=== PATIENT | male | born 1940 | race Caucasian/White ===

== ENCOUNTER 2016-12-01 09:37 | Inpatient (IN) | payer MEDICARE, MEDICAID ==
[~2016-12-01] VITALS: Ht 162.6 cm; Wt 68.9 kg
[2016-12-01] MEDS: TIOTROPIUM INHALER/CAPSULE (SPIRIVA) INH SCH (08:00)
[2016-12-01] MEDS: ADVAIR DISKUS 250/50 INH PWD INH SCH ×2 (09:00→22:01)
[2016-12-01] MEDS ORDERED: MIRALAX *UNIT DOSE* 17GM PACKET PO PRN (10:00)
[2016-12-01] MEDS ORDERED: NITROGLYCERIN 0.4 MG SUBL TABLET SL PRN (10:00)
[2016-12-01] MEDS ORDERED: ALBUTEROL 90 MCG/ACT 8GM HFA INHALER INH PRN (10:00)
[2016-12-01] MEDS ORDERED: ACETAMINOPHEN TAB 650MG DOSE (2X325MG) PO PRN (10:00)
[2016-12-01] MEDS ORDERED: MOM 30ML SUSPENSION UDC PO PRN (10:00)
[2016-12-01 10:45] VITALS: BP 126/60
[2016-12-01] MEDS ORDERED: FLUO20CA8 PO (11:35)
[2016-12-01] MEDS ORDERED: HYDR25T PO (11:35)
[2016-12-01] MEDS ORDERED: PROA1AER INH (11:35)
[2016-12-01] MEDS ORDERED: RANO5TAB PO (11:35)
[2016-12-01] MEDS ORDERED: LYRI150C PO (11:35)
[2016-12-01] MEDS ORDERED: RANI300T PO (11:35)
[2016-12-01] MEDS ORDERED: CLOP75TA2 PO (11:35)
[2016-12-01] MEDS ORDERED: FINA5TAB2 PO (11:35)
[2016-12-01] MEDS ORDERED: MIRA3350 PO (11:35)
[2016-12-01] MEDS ORDERED: NITR4TASL SL (11:35)
[2016-12-01] MEDS ORDERED: FERR325T PO (11:35)
[2016-12-01] MEDS ORDERED: AMLO5TAB2 PO (11:35)
[2016-12-01] MEDS ORDERED: DEXI60CA PO (11:35)
[2016-12-01] MEDS ORDERED: ATOR1TAB18 PO (11:35)
[2016-12-01] MEDS ORDERED: RAMI10CA PO (11:35)
[2016-12-01] MEDS ORDERED: FLOM5CAP PO (11:35)
[2016-12-01] MEDS ORDERED: SPIR1CAP INH (11:35)
[2016-12-01] MEDS ORDERED: OXYC1TAB23 PO (11:35)
[2016-12-01] MEDS ORDERED: COLA100C PO (11:35)
[2016-12-01] MEDS ORDERED: MELA3TAB PO (11:37)
[2016-12-01] MEDS ORDERED: DULO1CAP3 PO (11:38)
[2016-12-01] MEDS ORDERED: SYMB80INH INH (11:39)
[2016-12-01] MEDS ORDERED: ACET-654 PO (11:42)
[2016-12-01] MEDS ORDERED: ALPR0.25 PO (11:44)
--- NOTE | 2016-12-01 13:04 | HPEPDOC ---
Commercial Sales Manager Note ADMISSION H&P + LINA DATE OF ADMISSION: 12/01/16 DATE OF SERVICE: 12/01/16 IDENTIFICATION STATEMENT: Patient is a 76-year-old gentleman with acute right internal capsule infarct/left hemiparesis admitted for comprehensive integrated inpatient rehabilitation. Thereve been no significant changes in the patients condition since the preadmission screening. HISTORY OF PRESENT ILLNESS: Patient is a 76-year-old right hand dominant gentleman with a history of multiple medical comorbidities including hypertension and prior stroke who presented to his [facility] emergency department 11/25/16 with several hours of dysarthria and left hemiparesis. CT of the head was negative for acute findings. The patient was transferred to [facility] for higher level of care. At [facility] he underwent an MRI of the brain which showed an acute infarct in the right internal capsule, posterior [place]/bañuelos radiata. He underwent treatments including Plavix, statin therapy and antihypertensive treatment to maintain systolic blood pressure between 140 and 1 80 mmHg. Due to decline in the patients baseline functional status and need for continued medical care, recommendation was for acute rehabilitation. On 12/01/2016 the patient was deemed stable for discharge to [facility] inpatient rehabilitation unit. On evaluation today, the patient reports improved strength in his left lower limb, but on no improvement in his left upper limb weakness. He also reports tingling on the lateral aspect of his mouth and continued weakness on the left side of his mouth. He reports an exacerbation of his chronic low back pain citing that laying in bed increases his pain, sitting up in a chair alleviates it, describes it as achy with intermittent sharp pains. He denies any radiating pain to the bilateral lower limbs. He reports shortness of breath which is been present for proximally half a year, but denies any productive cough. He has not moved his bowels in about a week. He denies any dysuria. He reports intermittent anxiety attacks. PAST MEDICAL HISTORY: Hypertension Hyperlipidemia Coronary artery disease status post multiple stents Gastroesophageal reflux disease Esophagitis Gastritis Hiatal hernia Schatzki ring Colonic polyps Prior stroke affecting left side but without significant residual ?BPH PAST SURGICAL HISTORY: Coronary artery stents (2-3 times, patient unsure of which vessel stented or years of stenting) Appendectomy Right shoulder surgery Hernia repair ALLERGIES: aspirin leads to hives; NSAIDs MEDICATIONS: Albuterol inhaler 2 puffs every 6 hours Altace 10 mg by mouth daily Norvasc 5 mg by mouth daily BreoEllipta one puff daily Plavix 75 mg daily Dexilant 60 mg daily Ferrous fumarate 324 mg daily Proscar 5 mg daily Atarax 25 mg by mouth daily as needed Nitrostat 0.4 mg sublingual every 5 minutes as needed Percocet 1 tab every 4 hours as needed Lyrica 50 mg daily Ranexa 500 mg twice a day Zocor 20 mg at bedtime Flomax 0.4 mg daily Spiriva 18 g inhaled daily Zantac 300 mg at night FAMILY HISTORY: Father at the age of 65 brain aneurysm, mother asked away in her 90s and of old age. SOCIAL HISTORY: Patient is and lives with his in a two-story home, but there is a first floor set up. There are 2-3 steps to enter the house. He reports of history of smoking about 5 cigarettes per day for approximately 40 years and quit in 1995, but approximate one month ago restarted smoking. He reports occasional alcohol, usually beer. He denies any illicit drug use, past or present. Review of Systems: General: no chills, +fatigue, no weight changes. Eyes: no change of vision, + bifocals. Ears, Nose & Throat: no sore throat, +decreased hearing, no nasal discharge. Cardiovascular: no chest pain, claudication, edema , syncopal episodes. Pul: +SOB last year, no productive cough. GI: + constipation, no abdominal pain, N/V, BRBPR/tarry stools, incontinence. Genitourinary: no dysuria. Musculoskeletal: +chronic low back pain exacerbated by being in bed; no neck/joint pain, no muscle pain. Neurological: Positive tingling left internal cheek, no paresthesias or numbness elsewhere., no tremors , seizures, AGUILERA. Hematological: No bleeding disorders. Skin: no rashes. Psychiatric: Episodic anxiety since being in the hospital, no depression, behavioral issues. VITAL SIGNS: 96.6F, pulse 54, respiratory rate 18, blood pressure 126/60, 99% saturation on room air PHYSICAL EXAMINATION: GENERAL: Well nourished, well developed, sitting up in bed, no acute distress. HEENT: Normocephalic, atraumatic. Left facial droop, slight. No jugular venous distention (JVD). PERRL, EOMI CARDIOVASCULAR: S1, S2, regular rate. No lower limb edema or calf tenderness bilaterally LUNGS: Decreased breath sounds throughout, clear to auscultation, no wheezing rhonchi or rales. ABDOMEN: Soft, nontender, nondistended. Positive normoactive bowel sounds throughout. MUSCULOSKELETAL: Osteoarthritic changes bilateral hands and DIP and PIP joints. Manual muscle testin/5 strength right upper and lower limb in all major muscle groups. 4/5 left hip flexors, 5/5 remainder of the left lower limb in all major muscle groups. 1/5 left shoulder shrug, 0 forward/5 left shoulder abduction, forward flexion, elbow flexion, elbow extension, wrist extension/ flexion, stock taker and finger extension. Sensation: Intact to soft touch bilateral upper and lower limbs. Deep tendon reflexes: Unable to elicit patellar bilaterally, trace biceps bilaterally. Finger to nose on the right within normal limits. NEUROLOGICAL: Alert and oriented x 3. Answers all questions appropriately. Speech intact, no dysarthria. Able to follow commands without difficulty and memory seems intact. SKIN: No skin breakdown. LABORATORY DATA: None available. IMAGING: CT of the head without contrast 11/25/2016: Normal brain without evidence of any acute ischemic or hemorrhagic stroke. CTA of the head and neck on 11/25/2016: No attenuation in the right internal capsule/posterior [place] is consistent with infarct, probably recent. Hypoattenuation in the thalamus is likely c s s representative chronic infarct. 2 focal areas of narrowing is noted in the P1 segment of the right posterior cerebral artery. No evidence of hemodynamically significant flow stenosis. No evidence of aneurysm or AV malformation. No evidence of acute intracranial hemorrhage. MRI of the brain 11/25/2016: Acute infarct is noted in the right internal capsule, posterior [place]/bañuelos radiata. 2-D echocardiogram November 2016: Negative saline bubble study. Estimated left ventricular ejection fraction greater than 70%. Grossly normal right ventricular size and systolic function. There is mild aortic stenosis. Mild to moderate mitral regurgitation. FUNCTIONAL STATUS, Premorbid: Independent with ADLs and ambulation. ASSESSMENT AND PLAN: 1. Right internal capsule, posterior [place] and bañuelos radiata acute infarct with resultant left hemiparesis, gait abnormality and dysfunctional ADLs: Will maintain patient on Plavix and statin. Blood pressure control to maintain systolic blood pressure less than 140. Will continue Prozac for 90 days to support recovery as evidence by FLAME trial. Patient will undergo thorough physical and occupational therapy evaluations followed by daily intensive therapy. Will start NMES the left upper limb. Rehabilitation nursing for bladder , bowel and medication management. 2. Constipation: Will provide bowel regimen to include Colace and senna scheduled along along with milk of magnesia and MiraLAX on an as-needed basis. Adjustments as indicated. 3. COPD: Will maintain patient on Proventil and Spiriva. Phillips acute Advair since Breo is not on our formulary. 4. Anxiety: Will maintain patient on Atarax when necessary 5. Gastritis/reflux: Will maintain patient on PPI along with H2 navya. 6. Pain: Percocet on an as-needed basis. Continue Lyrica daily. 7. Diet/nutrition: Will obtain a prealbumin with morning labs. Low cholesterol diet. Nutritional supplements as indicated. POST ADMISSION PHYSICIAN EVALUATION: On evaluation of the patient today there' ve been no significant medical issues or functional changes as compared to those noted in the preadmission screening document. This patient's inpatient rehabilitation remains necessary in light of the above conditions. The patient' s medical condition requires specialized care with physicians specially trained in physical medicine rehabilitation. The patient is capable motivated to participate in a minimum of 3 hours of therapy daily, 5 days minimum per week, and requires intensive inpatient rehabilitation to improve their functional status so that they can be safely to discharge back to their home. PROGNOSIS: Good ESTIMATED LENGTH OF STAY: 7-10 days. / Vital Signs Vital Sign - Last 24 Hours 12/01/16 10:45 Temp 96.6 Pulse 54 Resp 18 B/P 126/60 Pulse Ox 99 O2 Delivery Room Air Home Medications Scheduled (Dexilant) 60 Mg Cap 60 MG PO DAILY (Reported) Amlodipine Besylate (Amlodipine Besylate) 5 Mg Tab 5 MG PO DAILY (Reported) Atorvastatin Calcium (Atorvastatin Calcium) 80 Mg Tab 80 MG PO QHS (Reported) SEE COMMENTS Budesonide/Formoterol (Symbicort 80-4.5 Mcg/Act) 60 Puff/Inhaler Aers 2 PUFF INH BID (Reported) Clopidogrel Bisulfate (Clopidogrel) 75 Mg Tab 75 MG PO DAILY (Reported) Duloxetine Hcl (Duloxetine HCl) 60 Mg Cap 60 MG PO DAILY (Reported) HOME MED, TOLD TO D/C AND GO ON FLUOXETINE Ferrous Sulfate (Ferrous Sulfate) 325 Mg Tab 325 MG PO DAILY (Reported) Finasteride (Finasteride) 5 Mg Tab 5 MG PO DAILY (Reported) Fluoxetine Hcl (Fluoxetine) 20 Mg Cap 20 MG PO DAILY (Reported) SEE COMMENTS Pregabalin (Lyrica) 150 Mg Cap 150 MG PO DAILY (Reported) Ramipril (Ramipril) 10 Mg Cap 10 MG PO DAILY (Reported) Ranitidine HCl (Ranitidine HCl) 300 Mg Tab 1 TAB PO QHS (Reported) Ranolazine (Ranexa) 500 Mg Ryan 500 MG PO BID (Reported) Tamsulosin Hydrochloride (Flomax) 0.4 Mg Cap 1 CAP PO DAILY (Reported) once daily 1/2 hour following the same meal each day Tiotropium [place] Monohydrate (Spiriva Handihaler) 18 Mcg Cap 1 INHALATION INH DAILY (Reported) Scheduled PRN Acetaminophen (Acetaminophen) 325 Mg Tab 650 MG PO Q6H PRN PRN PAIN (Reported) Albuterol Sulfate (Proair Hfa) 108 Mcg/Act Aer 2 PUFF INH QID PRN PRN SHORTNESS OF BREATH (Reported) Alprazolam (Alprazolam) 0.25 Mg Tab 0.25 MG PO QHS PRN PRN ANXIETY (Reported) Docusate Sodium (Colace) 100 Mg Cap 100 MG PO BID PRN PRN CONSTIPATION (Reported ) Hydroxyzine HCl (Hydroxyzine HCl) 25 Mg Tab 25 MG PO DAILY PRN PRN ITCHING ( Reported) Melatonin (Melatonin) 3 Mg Tab 3 MG PO QHS PRN PRN SLEEP (Reported) Nitroglycerin (Nitrostat) 0.4 Mg Subl 0.4 MG SL Q5MP PRN PRN CHEST PAIN ( Reported) Oxycodone/Acetaminophen (Oxycodone/Acetaminophen 5-325 mg) 1 Tab Tab 1 TAB PO Q4H PRN PRN PAIN (Reported) Polyethylene Glycol (Miralax) 1 Pow Pow 17 GM PO DAILY PRN PRN CONSTIPATION ( Reported) dilute in 8 ounces of water or juice Allergies Coded Allergies: Aspirin (Verified Allergy, Unknown, 01/09/13) NSAIDs (Verified Allergy, Unknown, 01/09/13) ERROL ACEVEDO MD Dec 01, 2016 13:04
[2016-12-01] MEDS: PANTOPRAZOLE 40MG TAB (PROTONIX) PO SCH (13:08)
[2016-12-01] MEDS: FERROUS GLUCONATE 324 MG TAB PO SCH (13:08)
[2016-12-01] MEDS: amLODIPine 5 MG TAB PO SCH (13:09)
[2016-12-01] MEDS: FLUoxetine 20 MG CAP PO SCH (13:09)
[2016-12-01 14:00] VITALS: BP 134/64
[2016-12-01 20:00] VITALS: BP 155/67
[2016-12-01] MEDS: FAMOTIDINE 20 MG TAB PO SCH (20:06)
[2016-12-01] MEDS: DOCUSATE SODIUM 100 MG CAP PO SCH (20:06)
[2016-12-01] MEDS: RANOLAZINE 500 MG ER TAB PO SCH (20:06)
[2016-12-01] MEDS: SENNA 8.6 MG TAB (SENOKOT) PO SCH (20:06)
[2016-12-01] MEDS: SIMVASTATIN 20 MG TAB PO SCH (20:06)
[2016-12-01] MEDS: PERCOCET 5MG/325MG TAB PO PRN (20:07)
[2016-12-01] MEDS: hydrOXYzine 25 MG TAB PO PRN (20:15)
[2016-12-02 06:00] VITALS: BP 138/63
[2016-12-02 06:53] LABS: MEAN CORPUSCULAR HEMOGLOBIN 27.6 pg (27.0-33.0); MEAN CORPUSCULAR HGB CONC 32.7 g/dl (32.0-36.5); MEAN CORPUSCULAR VOLUME 84.3 fl (80.0-96.0)
[2016-12-02 07:14] LABS: ANION GAP 6 MEQ/L (8-16); BLOOD UREA NITROGEN 19 MG/DL (7-18); CALCIUM LEVEL 8.3 MG/DL (8.8-10.2); CARBON DIOXIDE LEVEL 28 MEQ/L (21-32); CHLORIDE LEVEL 105 MEQ/L (98-107); CREATININE FOR GFR 0.98 MG/DL (0.70-1.30); GLOMERULAR FILTRATION RATE > 60.0 (>42); GLUCOSE, FASTING 95 MG/DL (83-110); POTASSIUM SERUM 4.2 MEQ/L (3.5-5.1); SODIUM LEVEL 139 MEQ/L (136-145)
[2016-12-02] MEDS: PERCOCET 5MG/325MG TAB PO PRN ×2 (07:20→23:13)
[2016-12-02] MEDS: TIOTROPIUM INHALER/CAPSULE (SPIRIVA) INH SCH (08:00)
[2016-12-02] MEDS: ADVAIR DISKUS 250/50 INH PWD INH SCH ×2 (08:03→20:08)
[2016-12-02] MEDS: TAMSULOSIN 0.4 MG CAP PO SCH (08:56)
[2016-12-02] MEDS: PANTOPRAZOLE 40MG TAB (PROTONIX) PO SCH (08:56)
[2016-12-02] MEDS: DOCUSATE SODIUM 100 MG CAP PO SCH ×2 (08:56→20:14)
[2016-12-02] MEDS: FERROUS GLUCONATE 324 MG TAB PO SCH (08:56)
[2016-12-02] MEDS: CLOPIDOGREL 75 MG TAB PO SCH (08:56)
[2016-12-02] MEDS: FLUoxetine 20 MG CAP PO SCH (08:56)
[2016-12-02] MEDS: RANOLAZINE 500 MG ER TAB PO SCH ×2 (08:57→20:14)
[2016-12-02] MEDS: FINASTERIDE 5 MG TAB PO SCH (08:57)
[2016-12-02] MEDS: PREGABALIN 75 MG CAP(LYRICA) PO SCH (08:57)
[2016-12-02] MEDS: amLODIPine 5 MG TAB PO SCH (08:57)
[2016-12-02] MEDS: RAMIPRIL 5 MG CAP PO SCH (08:58)
--- NOTE | 2016-12-02 09:56 | IPNPDOC ---
Audio Visual Tech Progress Note PROGRESS NOTE DATE OF ADMISSION: 12/01/16 DATE OF SERVICE: 12/02/16 IDENTIFICATION STATEMENT: Patient is a 76-year-old gentleman with acute right internal capsule infarct/left hemiparesis admitted for comprehensive integrated inpatient rehabilitation. PAST MEDICAL HISTORY: Hypertension Hyperlipidemia Coronary artery disease status post multiple stents Gastroesophageal reflux disease Esophagitis Gastritis Hiatal hernia Schatzki ring Colonic polyps Prior stroke affecting left side but without significant residual ?BPH PAST SURGICAL HISTORY: Coronary artery stents (2-3 times, patient unsure of which vessel stented or years of stenting) Appendectomy Right shoulder surgery Hernia repair ALLERGIES: aspirin leads to hives; NSAIDs MEDICATIONS: Altace 10 mg by mouth daily Norvasc 5 mg by mouth daily Plavix 75 mg daily Protonix 40mg daily Ferrous gluconate 324 mg daily Proscar 5 mg daily Atarax 25 mg by mouth daily as needed Nitrostat 0.4 mg sublingual every 5 minutes as needed Percocet 1 tab every 4 hours as needed Lyrica 150 mg daily Ranexa 500 mg twice a day Zocor 20 mg at bedtime Flomax 0.4 mg daily Spiriva 18 g inhaled daily Advair 1 puf bid Albuterol inhaler 2 puffs every 6 hours Pepcid 40 mg at night SUBJECTIVE: Patient states wasnt able to sleep last night, just anxious, Atarax helped. Also had leg cramps. Thinks from working hard yesterday with therapists. Denies any CP, increased SOB, N/V, C/D,lightheadedness, AGUILERA or new weakness. VITAL SIGNS: 97.0F, pulse 50, respiratory rate 18, blood pressure 138/63, 96% saturation on room air PHYSICAL EXAMINATION: GENERAL: Well nourished, well developed, sitting up in WC, no acute distress. HEENT: Normocephalic, atraumatic. Left facial droop, slight(unchanged). PERRL, EOMI CARDIOVASCULAR: S1, S2, regular rate. No lower limb edema or calf tenderness bilaterally LUNGS: Decreased breath sounds throughout, clear to auscultation, no wheezing rhonchi or rales. ABDOMEN: Soft, nontender, nondistended. Positive normoactive bowel sounds throughout. MUSCULOSKELETAL: Osteoarthritic changes bilateral hands and DIP and PIP joints. Manual muscle testin/5 strength right upper and lower limb in all major muscle groups. 4/5 left hip flexors, 5/5 remainder of the left lower limb in all major muscle groups. 1/5 left shoulder shrug, 0/5 left shoulder forward flexion, left shoulder abduction, elbow flexion, elbow extension, wrist extension/flexion, reliability technicians and finger extension. NEUROLOGICAL: Alert and oriented x 3. Answers all questions appropriately. Speech intact, no dysarthria. Able to follow commands without difficulty and memory seems intact. SKIN: No skin breakdown. LABORATORY DATA: 12/02/16: reviewed, see below IMAGING: CT of the head without contrast 11/25/2016: Normal brain without evidence of any acute ischemic or hemorrhagic stroke. CTA of the head and neck on 11/25/2016: No attenuation in the right internal capsule/posterior [place] is consistent with infarct, probably recent. Hypoattenuation in the thalamus is likely livestock sales representative chronic infarct. 2 focal areas of narrowing is noted in the P1 segment of the right posterior cerebral artery. No evidence of hemodynamically significant flow stenosis. No evidence of aneurysm or AV malformation. No evidence of acute intracranial hemorrhage. MRI of the brain 11/25/2016: Acute infarct is noted in the right internal capsule, posterior [place]/bañuelos radiata. 2-D echocardiogram November 2016: Negative saline bubble study. Estimated left ventricular ejection fraction greater than 70%. Grossly normal right ventricular size and systolic function. There is mild aortic stenosis. Mild to moderate mitral regurgitation. FUNCTIONAL STATUS, Premorbid: Independent with ADLs and ambulation. ASSESSMENT AND PLAN: 1. Right internal capsule, acute infacte posterior [place] and bañuelos radiata with resultant left hemiparesis, gait abnormality and dysfunctional ADLs: Maintain Plavix and statin. Blood pressure control to maintain systolic blood pressure less than 140. Continue Prozac for 90 days to support recovery as evidence by FLAME trial. Continue daily physical and occupational therapy. NMES the left upper limb. Rehabilitation nursing for bladder, bowel and medication management. 2. Constipation: Resolved. Continue bowel regimen to include Colace and senna scheduled along with milk of magnesia and MiraLAX on an as-needed basis. 3. COPD: Maintain Proventil , Spiriva and Advair [Breo is not on our formulary] . 4. Anxiety: Continue Atarax when necessary 5. Gastritis/reflux: Continue PPI along with H2 navya. 6. Pain: Percocet on an as-needed basis. Continue Lyrica daily. Added Flexeril prn for spasms. 7. Diet/nutrition: Prealbumin wnl. Low cholesterol diet. / Vital Signs Vital Sign - Last 24 Hours 12/01/16 12/01/16 12/01/16 12/01/16 10:45 13:09 14:00 20:00 Temp 96.6 96.4 96.9 Pulse 54 54 58 56 Resp 18 18 18 B/P 126/60 126/60 134/64 155/67 Pulse Ox 99 97 95 O2 Delivery Room Air Room Air Room Air 12/01/16 12/01/16 12/02/16 12/02/16 20:00 20:07 06:00 07:20 Temp 97.0 Pulse 50 Resp 18 20 18 B/P 138/63 Pulse Ox 96 O2 Delivery Room Air Room Air 12/02/16 12/02/16 12/02/16 12/02/16 07:58 08:57 08:58 09:00 Pulse 50 Resp 18 B/P 138/63 138/63 O2 Delivery Room Air Laboratory Data CBC/BMP Laboratory Tests 12/02/16 06:33 Calcium Level 8.3 L, Red Blood Count 4.37, Mean Corpuscular Volume 84.3, Mean Corpuscular Hemoglobin 27.6, Mean Corpuscular Hemoglobin Concent 32.7, Red Cell Distribution Width 14.0 Labs 24H Laboratory Tests 2 12/02/16 06:33: Anion Gap 6L, Blood Urea Nitrogen 19H, Creatinine 0.98, Sodium Level 139, Potassium Level 4.2, Chloride Level 105, Carbon Dioxide Level 28, Calcium Level 8.3L, Glomerular Filtration Rate > 60.0, Prealbumin 35.8 Allergies Allergies: Coded Allergies: Aspirin (Verified Allergy, Unknown, 01/09/13) NSAIDs (Verified Allergy, Unknown, 01/09/13) Current Medications Current Medications Current Medications Acetaminophen (Tylenol Tab) 650 mg Q4HP PRN PO MILD PAIN (PS 1-4); Start at 10:00; Stop 12/31/16 at 09:59 Albuterol Sulfate (Proventil, Ventolin Hfa) 2 puff Q6HP PRN INH SHORTNESS OF BREATH; Start 12/01/16 at 10:00; Stop 12/31/16 at 09:59 Amlodipine Besylate (Norvasc) 5 mg DAILY PO Last administered on 12/02/16 08: 57; Start 12/01/16 at 09:00; Stop 12/31/16 at 08:59 Clopidogrel Bisulfate (PLAVix) 75 mg DAILY PO Last administered on 12/02/16 08 :56; Start 12/02/16 at 09:00; Stop 01/01/17 at 08:59 Cyclobenzaprine HCl (Flexeril) 10 mg Q8HP PRN PO SPASMS; Start 12/02/16 at 09: 45; Stop 01/01/17 at 09:44 Docusate Sodium (Colace) 100 mg BID PO Last administered on 12/02/16 08:56; Start 12/01/16 at 21:00; Stop 12/31/16 at 20:59 Famotidine (Pepcid) 40 mg QHS PO Last administered on 12/01/16 20:06; Start at 21:00; Stop 12/31/16 at 20:59 Ferrous Gluconate (Fergon) 324 mg DAILY PO Last administered on 12/02/16 08:56 ; Start 12/01/16 at 09:00; Stop 12/31/16 at 08:59 Finasteride (Proscar) 5 mg DAILY PO Last administered on 12/02/16 08:57; Start 12/02/16 at 09:00; Stop 01/01/17 at 08:59 Fluoxetine HCl (PROzac) 20 mg DAILY PO Last administered on 12/02/16 08:56; Start 12/01/16 at 09:00; Stop 12/31/16 at 08:59 Home Med (Med Rec Complete!) ASDIRECTED XX ; Start 12/01/16 at 11:45; Stop at 11:57; Status DC Hydroxyzine HCl (Atarax) 25 mg DAILYPRN PRN PO ANXIETY or INSOMNIA Last administered on 12/01/16 20:15; Start 12/01/16 at 10:00 Magnesium Hydroxide (Milk Of Magnesia) 30 ml DAILYPRN PRN PO CONSTIPATION Last administered on 12/01/16 13:08; Start 12/01/16 at 10:00; Stop 12/31/16 at 09:59 Nitroglycerin (Nitrostat (1/ 150)) 0.4 mg Q5MP PRN SL CHEST PAIN; Start at 10:00; Stop 12/31/16 at 09:59 Oxycodone/ Acetaminophen (Percocet 5mg/ 325mg Tablet) 1 tab Q4HP PRN PO MODERATE/SEVERE PAIN (PS 5-10) Last administered on 12/02/16 07:20; Start 12/01 at 10:00; Stop 12/08/16 at 09:59 Pantoprazole Sodium (Protonix) 40 mg DAILY PO Last administered on 12/02/16 08 :56; Start 12/01/16 at 09:00; Stop 12/31/16 at 08:59 Polyethylene Glycol (Miralax) 1 pkt DAILY PRN PO CONSTIPATION; Start 12/01/16 at 10:00; Stop 12/31/16 at 09:59 Pregabalin (Lyrica) 150 mg DAILY PO Last administered on 12/02/16 08:57; Start 12/02/16 at 09:00; Stop 12/09/16 at 08:59 Ramipril (Altace) 10 mg DAILY PO Last administered on 12/02/16 08:58; Start at 09:00; Stop 01/01/17 at 08:59 Ranolazine (Ranexa) 500 mg BID PO Last administered on 12/02/16 08:57; Start 12/01/16 at 21:00; Stop 12/31/16 at 20:59 Salmeterol Xinafoate/ Fluticasone (Advair Diskus 250/50) 1 puff BID INH Last administered on 12/01/16 22:01; Start 12/01/16 at 09:00; Stop 12/31/16 at 08:59 Senna (Senokot) 1 tab QHS PO Last administered on 12/01/16 20:06; Start at 21:00; Stop 12/31/16 at 20:59 Simvastatin (Zocor) 20 mg QHS PO Last administered on 12/01/16 20:06; Start at 21:00; Stop 12/31/16 at 20:59 Tamsulosin HCl (Flomax) 0.4 mg DAILY PO Last administered on 2/23/17at 08:56; Start 12/02/16 at 09:00; Stop 01/01/17 at 08:59 Tiotropium [place] (Spiriva Handihaler) 1 inhalation DAILY@08 INH ; Start at 08:00; Stop 12/31/16 at 07:59 ERROL ACEVEDO MD Dec 02, 2016 09:56
[2016-12-02 14:00] VITALS: BP 122/62
[2016-12-02 15:50] LABS: PERCENT SATURATION 16.5 % (19.7-37.4); TOTAL IRON BINDING CAPACITY 345 UG/DL (250-450)
[2016-12-02 20:00] VITALS: BP 134/72
[2016-12-02] MEDS: CYCLOBENZAPRINE 10 MG TAB PO PRN (20:14)
[2016-12-02] MEDS: SENNA 8.6 MG TAB (SENOKOT) PO SCH (20:14)
[2016-12-02] MEDS: SIMVASTATIN 20 MG TAB PO SCH (20:14)
[2016-12-02] MEDS: FAMOTIDINE 20 MG TAB PO SCH (20:14)
[2016-12-03 06:00] VITALS: BP 149/72
[2016-12-03] MEDS: ADVAIR DISKUS 250/50 INH PWD INH SCH ×2 (08:13→19:54)
[2016-12-03] MEDS: TIOTROPIUM INHALER/CAPSULE (SPIRIVA) INH SCH (08:13)
[2016-12-03] MEDS: RAMIPRIL 5 MG CAP PO SCH (08:16)
[2016-12-03] MEDS: CLOPIDOGREL 75 MG TAB PO SCH (08:16)
[2016-12-03] MEDS: PANTOPRAZOLE 40MG TAB (PROTONIX) PO SCH (08:16)
[2016-12-03] MEDS: DOCUSATE SODIUM 100 MG CAP PO SCH ×2 (08:16→20:59)
[2016-12-03] MEDS: TAMSULOSIN 0.4 MG CAP PO SCH (08:16)
[2016-12-03] MEDS: FLUoxetine 20 MG CAP PO SCH (08:16)
[2016-12-03] MEDS: amLODIPine 5 MG TAB PO SCH (08:17)
[2016-12-03] MEDS: RANOLAZINE 500 MG ER TAB PO SCH ×2 (08:17→20:59)
[2016-12-03] MEDS: FERROUS GLUCONATE 324 MG TAB PO SCH ×2 (08:17→21:00)
[2016-12-03] MEDS: PREGABALIN 75 MG CAP(LYRICA) PO SCH (08:17)
[2016-12-03] MEDS: FINASTERIDE 5 MG TAB PO SCH (08:17)
--- NOTE | 2016-12-03 12:05 | IPNPDOC ---
Podiatric Medicine Doctor Progress Note PROGRESS NOTE DATE OF ADMISSION: 12/01/16 DATE OF SERVICE: 12/03/16 IDENTIFICATION STATEMENT: Patient is a 76-year-old gentleman with acute right internal capsule infarct/left hemiparesis admitted for comprehensive integrated inpatient rehabilitation. PAST MEDICAL HISTORY: Hypertension Hyperlipidemia Coronary artery disease status post multiple stents Gastroesophageal reflux disease Esophagitis Gastritis Hiatal hernia Schatzki ring Colonic polyps Prior stroke affecting left side but without significant residual ?BPH PAST SURGICAL HISTORY: Coronary artery stents (2-3 times, patient unsure of which vessel stented or years of stenting) Appendectomy Right shoulder surgery Hernia repair ALLERGIES: aspirin leads to hives; NSAIDs MEDICATIONS: Altace 10 mg by mouth daily Norvasc 5 mg by mouth daily Plavix 75 mg daily Protonix 40mg daily Ferrous gluconate 324 mg daily Proscar 5 mg daily Atarax 25 mg by mouth daily as needed Nitrostat 0.4 mg sublingual every 5 minutes as needed Percocet 1 tab every 4 hours as needed Lyrica 150 mg daily Ranexa 500 mg twice a day Zocor 20 mg at bedtime Flomax 0.4 mg daily Spiriva 18 g inhaled daily Advair 1 puf bid Albuterol inhaler 2 puffs every 6 hours Pepcid 40 mg at night SUBJECTIVE: Patient w/o complaints. Slept ok. Flexeril helps. Denies any CP, increased SOB, N/V, C/D,lightheadedness, AGUILERA or new weakness. VITAL SIGNS: 97.2F, pulse 58, respiratory rate 18, blood pressure 120/58, 96% saturation on room air PHYSICAL EXAMINATION: GENERAL: Well nourished, well developed, standing up in parallel bars, no acute distress. HEENT: Normocephalic, atraumatic. Left facial droop, slight (unchanged). PERRL, EOMI CARDIOVASCULAR: S1, S2, regular rate. No lower limb edema or calf tenderness bilaterally LUNGS: Decreased breath sounds throughout, clear to auscultation, no wheezing rhonchi or rales. ABDOMEN: Soft, nontender, nondistended. Positive normoactive bowel sounds throughout. MUSCULOSKELETAL: Osteoarthritic changes bilateral hands and DIP and PIP joints. Manual muscle testin/5 strength right upper and lower limb in all major muscle groups. 4/5 left hip flexors, 5/5 remainder of the left lower limb in all major muscle groups. 1/5 left shoulder shrug, 0/5 left shoulder forward flexion, left shoulder abduction, elbow flexion, elbow extension, wrist extension/flexion, mosaic technician and finger extension. NEUROLOGICAL: Alert and oriented x 3. Answers all questions appropriately. Speech intact, no dysarthria. Able to follow commands without difficulty. SKIN: No skin breakdown. LABORATORY DATA: 12/02/16: re-reviewed, see below IMAGING: CT of the head without contrast 11/25/2016: Normal brain without evidence of any acute ischemic or hemorrhagic stroke. CTA of the head and neck on 11/25/2016: No attenuation in the right internal capsule/posterior [place] is consistent with infarct, probably recent. Hypoattenuation in the thalamus is likely representative government relations chronic infarct. 2 focal areas of narrowing is noted in the P1 segment of the right posterior cerebral artery. No evidence of hemodynamically significant flow stenosis. No evidence of aneurysm or AV malformation. No evidence of acute intracranial hemorrhage. MRI of the brain 11/25/2016: Acute infarct is noted in the right internal capsule, posterior [place]/bañuelos radiata. 2-D echocardiogram November 2016: Negative saline bubble study. Estimated left ventricular ejection fraction greater than 70%. Grossly normal right ventricular size and systolic function. There is mild aortic stenosis. Mild to moderate mitral regurgitation. FUNCTIONAL STATUS, Premorbid: Independent with ADLs and ambulation. ASSESSMENT AND PLAN: 1. Right internal capsule, acute infarct posterior [place] and bañuelos radiata with resultant left hemiparesis, gait abnormality and dysfunctional ADLs: Maintain Plavix and statin. Blood pressure control to maintain systolic blood pressure less than 140. Continue Prozac. Continue daily physical and occupational therapy. NMES the left upper limb. Rehabilitation nursing for bladder, bowel and medication management. 2. Constipation: Resolved. Continue Colace and senna scheduled along with milk of magnesia and MiraLAX on an as-needed basis. 3. COPD: Maintain Proventil , Spiriva and Advair [Breo is not on our formulary] . 4. Anxiety: Continue Atarax when necessary 5. Gastritis/reflux: Continue PPI along with H2 navya. 6. Pain: Percocet on an as-needed basis. Continue Lyrica daily. Flexeril prn for spasms. 7. Diet/nutrition: Prealbumin wnl. Low cholesterol diet. / Vital Signs Vital Sign - Last 24 Hours 12/02/16 12/02/16 12/02/16 12/02/16 14:00 20:00 20:00 23:13 Temp 96.7 96.7 Pulse 54 54 Resp 18 18 18 B/P 122/62 134/72 Pulse Ox 99 96 O2 Delivery Room Air Room Air Room Air 12/02/16 12/03/16 12/03/16 12/03/16 23:43 06:00 08:16 08:17 Temp 97.2 Pulse 49 58 Resp 18 18 B/P 149/72 120/58 120/58 Pulse Ox 96 O2 Delivery Room Air Allergies Allergies: Coded Allergies: Aspirin (Verified Allergy, Unknown, 01/09/13) NSAIDs (Verified Allergy, Unknown, 01/09/13) Current Medications Current Medications Current Medications Acetaminophen (Tylenol Tab) 650 mg Q4HP PRN PO MILD PAIN (PS 1-4); Start at 10:00; Stop 12/31/16 at 09:59 Albuterol Sulfate (Proventil, Ventolin Hfa) 2 puff Q6HP PRN INH SHORTNESS OF BREATH; Start 12/01/16 at 10:00; Stop 12/31/16 at 09:59 Amlodipine Besylate (Norvasc) 5 mg DAILY PO Last administered on 12/03/16 08: 17; Start 12/01/16 at 09:00; Stop 12/31/16 at 08:59 Ascorbic Acid (Vitamin C) 500 mg BID PO ; Start 12/03/16 at 09:00; Stop at 08:59 Clopidogrel Bisulfate (PLAVix) 75 mg DAILY PO Last administered on 12/03/16 08 :16; Start 12/02/16 at 09:00; Stop 01/01/17 at 08:59 Cyclobenzaprine HCl (Flexeril) 10 mg Q8HP PRN PO SPASMS Last administered on 20:14; Start 12/02/16 at 09:45; Stop 01/01/17 at 09:44 Docusate Sodium (Colace) 100 mg BID PO Last administered on 12/03/16 08:16; Start 12/01/16 at 21:00; Stop 12/31/16 at 20:59 Famotidine (Pepcid) 40 mg QHS PO Last administered on 12/02/16 20:14; Start at 21:00; Stop 12/31/16 at 20:59 Ferrous Gluconate (Fergon) 324 mg BID PO ; Start 12/03/16 at 21:00; Stop at 20:59 Ferrous Gluconate (Fergon) 324 mg DAILY PO Last administered on 12/03/16 08:17 ; Start 12/01/16 at 09:00; Stop 12/03/16 at 09:39; Status DC Finasteride (Proscar) 5 mg DAILY PO Last administered on 12/03/16 08:17; Start 12/02/16 at 09:00; Stop 01/01/17 at 08:59 Fluoxetine HCl (PROzac) 20 mg DAILY PO Last administered on 12/03/16 08:16; Start 12/01/16 at 09:00; Stop 12/31/16 at 08:59 Home Med (Med Rec Complete!) ASDIRECTED XX ; Start 12/01/16 at 11:45; Stop at 11:57; Status DC Hydroxyzine HCl (Atarax) 25 mg DAILYPRN PRN PO ANXIETY or INSOMNIA Last administered on 12/01/16 20:15; Start 12/01/16 at 10:00 Magnesium Hydroxide (Milk Of Magnesia) 30 ml DAILYPRN PRN PO CONSTIPATION Last administered on 12/01/16 13:08; Start 12/01/16 at 10:00; Stop 12/31/16 at 09:59 Nitroglycerin (Nitrostat (1/ 150)) 0.4 mg Q5MP PRN SL CHEST PAIN; Start at 10:00; Stop 12/31/16 at 09:59 Oxycodone/ Acetaminophen (Percocet 5mg/ 325mg Tablet) 1 tab Q4HP PRN PO MODERATE/SEVERE PAIN (PS 5-10) Last administered on 12/02/16 23:13; Start 12/01 at 10:00; Stop 12/08/16 at 09:59 Pantoprazole Sodium (Protonix) 40 mg DAILY PO Last administered on 12/03/16 08 :16; Start 12/01/16 at 09:00; Stop 12/31/16 at 08:59 Polyethylene Glycol (Miralax) 1 pkt DAILY PRN PO CONSTIPATION; Start 12/01/16 at 10:00; Stop 12/31/16 at 09:59 Pregabalin (Lyrica) 150 mg DAILY PO Last administered on 12/03/16 08:17; Start 12/02/16 at 09:00; Stop 12/09/16 at 08:59 Ramipril (Altace) 10 mg DAILY PO Last administered on 12/03/16 08:16; Start at 09:00; Stop 01/01/17 at 08:59 Ranolazine (Ranexa) 500 mg BID PO Last administered on 12/03/16 08:17; Start 12/01/16 at 21:00; Stop 12/31/16 at 20:59 Salmeterol Xinafoate/ Fluticasone (Advair Diskus 250/50) 1 puff BID INH Last administered on 12/03/16 08:13; Start 12/01/16 at 09:00; Stop 12/31/16 at 08:59 Senna (Senokot) 1 tab QHS PO Last administered on 12/02/16 20:14; Start at 21:00; Stop 12/31/16 at 20:59 Simvastatin (Zocor) 20 mg QHS PO Last administered on 12/02/16 20:14; Start at 21:00; Stop 12/31/16 at 20:59 Tamsulosin HCl (Flomax) 0.4 mg DAILY PO Last administered on 12/03/16 08:16; Start 12/02/16 at 09:00; Stop 01/01/17 at 08:59 Tiotropium [place] (Spiriva Handihaler) 1 inhalation DAILY@08 INH Last administered on 12/03/16 08:13; Start 12/01/16 at 08:00; Stop 12/31/16 at 07:59 ERROL ACEVEDO MD Dec 03, 2016 12:05
[2016-12-03] MEDS: ASCORBIC ACID 500 MG TAB PO SCH ×2 (12:49→20:59)
[2016-12-03] MEDS: PERCOCET 5MG/325MG TAB PO PRN (12:50)
[2016-12-03 14:22] VITALS: BP 138/78
[2016-12-03 20:00] VITALS: BP 148/68
[2016-12-03] MEDS: SENNA 8.6 MG TAB (SENOKOT) PO SCH (20:59)
[2016-12-03] MEDS: FAMOTIDINE 20 MG TAB PO SCH (21:00)
[2016-12-03] MEDS: SIMVASTATIN 20 MG TAB PO SCH (21:01)
[2016-12-03] MEDS: CYCLOBENZAPRINE 10 MG TAB PO PRN (21:06)
[2016-12-03] MEDS: hydrOXYzine 25 MG TAB PO PRN (21:06)
[2016-12-04] MEDS: PERCOCET 5MG/325MG TAB PO PRN ×2 (02:37→14:47)
[2016-12-04 06:00] VITALS: BP 149/70
[2016-12-04 06:56] LABS: MEAN CORPUSCULAR HEMOGLOBIN 27.7 pg (27.0-33.0); MEAN CORPUSCULAR HGB CONC 33.3 g/dl (32.0-36.5); MEAN CORPUSCULAR VOLUME 83.2 fl (80.0-96.0); RED CELL DISTRIBUTION WIDTH 13.6 % (11.5-14.5); WHITE BLOOD COUNT 5.5 K/mm3 (4.0-10.0)
[2016-12-04 07:09] LABS: ANION GAP 8 MEQ/L (8-16); BLOOD UREA NITROGEN 19 MG/DL (7-18); CALCIUM LEVEL 8.5 MG/DL (8.8-10.2); CARBON DIOXIDE LEVEL 28 MEQ/L (21-32); CHLORIDE LEVEL 106 MEQ/L (98-107); CREATININE FOR GFR 0.93 MG/DL (0.70-1.30); GLOMERULAR FILTRATION RATE > 60.0 (>42); GLUCOSE, FASTING 102 MG/DL (83-110); POTASSIUM SERUM 3.9 MEQ/L (3.5-5.1); SODIUM LEVEL 142 MEQ/L (136-145)
[2016-12-04] MEDS: DOCUSATE SODIUM 100 MG CAP PO SCH ×2 (08:39→20:43)
[2016-12-04] MEDS: FLUoxetine 20 MG CAP PO SCH (08:39)
[2016-12-04] MEDS: PANTOPRAZOLE 40MG TAB (PROTONIX) PO SCH (08:39)
[2016-12-04] MEDS: FINASTERIDE 5 MG TAB PO SCH (08:39)
[2016-12-04] MEDS: TAMSULOSIN 0.4 MG CAP PO SCH (08:39)
[2016-12-04] MEDS: FERROUS GLUCONATE 324 MG TAB PO SCH ×2 (08:39→20:45)
[2016-12-04] MEDS: RANOLAZINE 500 MG ER TAB PO SCH ×2 (08:39→20:43)
[2016-12-04] MEDS: amLODIPine 5 MG TAB PO SCH (08:39)
[2016-12-04] MEDS: RAMIPRIL 5 MG CAP PO SCH (08:39)
[2016-12-04] MEDS: CLOPIDOGREL 75 MG TAB PO SCH (08:39)
[2016-12-04] MEDS: ASCORBIC ACID 500 MG TAB PO SCH ×2 (08:39→20:43)
[2016-12-04] MEDS: PREGABALIN 75 MG CAP(LYRICA) PO SCH (08:40)
[2016-12-04] MEDS: ADVAIR DISKUS 250/50 INH PWD INH SCH ×2 (08:41→20:40)
[2016-12-04] MEDS: TIOTROPIUM INHALER/CAPSULE (SPIRIVA) INH SCH (09:55)
[2016-12-04 14:00] VITALS: BP 135/67
[2016-12-04 20:00] VITALS: BP 139/65
[2016-12-04] MEDS: hydrOXYzine 25 MG TAB PO PRN (20:43)
[2016-12-04] MEDS: CYCLOBENZAPRINE 10 MG TAB PO PRN (20:44)
[2016-12-04] MEDS: FAMOTIDINE 20 MG TAB PO SCH (20:44)
[2016-12-04] MEDS: SENNA 8.6 MG TAB (SENOKOT) PO SCH (20:44)
[2016-12-04] MEDS: SIMVASTATIN 20 MG TAB PO SCH (20:45)
[2016-12-05] MEDS: PERCOCET 5MG/325MG TAB PO PRN ×2 (00:32→07:28)
[2016-12-05 06:00] VITALS: BP 124/60
[2016-12-05] MEDS: ASCORBIC ACID 500 MG TAB PO SCH ×2 (07:27→21:32)
[2016-12-05] MEDS: RANOLAZINE 500 MG ER TAB PO SCH ×2 (07:27→21:32)
[2016-12-05] MEDS: TAMSULOSIN 0.4 MG CAP PO SCH (07:27)
[2016-12-05] MEDS: RAMIPRIL 5 MG CAP PO SCH (07:27)
[2016-12-05] MEDS: PANTOPRAZOLE 40MG TAB (PROTONIX) PO SCH (07:27)
[2016-12-05] MEDS: CLOPIDOGREL 75 MG TAB PO SCH (07:27)
[2016-12-05] MEDS: FLUoxetine 20 MG CAP PO SCH (07:27)
[2016-12-05] MEDS: amLODIPine 5 MG TAB PO SCH (07:27)
[2016-12-05] MEDS: PREGABALIN 75 MG CAP(LYRICA) PO SCH (07:28)
[2016-12-05] MEDS: DOCUSATE SODIUM 100 MG CAP PO SCH ×2 (07:28→21:00)
[2016-12-05] MEDS: FINASTERIDE 5 MG TAB PO SCH (07:28)
[2016-12-05] MEDS: FERROUS GLUCONATE 324 MG TAB PO SCH ×2 (07:28→21:32)
[2016-12-05] MEDS: TIOTROPIUM INHALER/CAPSULE (SPIRIVA) INH SCH (07:45)
[2016-12-05] MEDS: ADVAIR DISKUS 250/50 INH PWD INH SCH ×2 (07:45→19:28)
[2016-12-05 14:00] VITALS: BP 114/58
[2016-12-05 20:00] VITALS: BP 154/72
[2016-12-05] MEDS: SENNA 8.6 MG TAB (SENOKOT) PO SCH (21:00)
[2016-12-05] MEDS: SIMVASTATIN 20 MG TAB PO SCH (21:32)
[2016-12-05] MEDS: FAMOTIDINE 20 MG TAB PO SCH (21:32)
[2016-12-06 06:00] VITALS: BP 156/72
[2016-12-06] MEDS: PERCOCET 5MG/325MG TAB PO PRN ×2 (06:43→20:18)
[2016-12-06 07:13] LABS: MEAN CORPUSCULAR HEMOGLOBIN 26.7 pg (27.0-33.0); MEAN CORPUSCULAR HGB CONC 32.1 g/dl (32.0-36.5); MEAN CORPUSCULAR VOLUME 83.2 fl (80.0-96.0); RED CELL DISTRIBUTION WIDTH 13.6 % (11.5-14.5); WHITE BLOOD COUNT 5.1 K/mm3 (4.0-10.0)
[2016-12-06 07:33] LABS: ANION GAP 9 MEQ/L (8-16); BLOOD UREA NITROGEN 13 MG/DL (7-18); CALCIUM LEVEL 8.7 MG/DL (8.8-10.2); CARBON DIOXIDE LEVEL 29 MEQ/L (21-32); CHLORIDE LEVEL 103 MEQ/L (98-107); CREATININE FOR GFR 0.87 MG/DL (0.70-1.30); GLOMERULAR FILTRATION RATE > 60.0 (>42); GLUCOSE, FASTING 106 MG/DL (83-110); POTASSIUM SERUM 3.9 MEQ/L (3.5-5.1); SODIUM LEVEL 141 MEQ/L (136-145)
[2016-12-06] MEDS: ADVAIR DISKUS 250/50 INH PWD INH SCH ×2 (07:52→21:39)
[2016-12-06] MEDS: TIOTROPIUM INHALER/CAPSULE (SPIRIVA) INH SCH (07:52)
[2016-12-06] MEDS: RAMIPRIL 5 MG CAP PO SCH (08:36)
[2016-12-06] MEDS: CLOPIDOGREL 75 MG TAB PO SCH (08:36)
[2016-12-06] MEDS: TAMSULOSIN 0.4 MG CAP PO SCH (08:36)
[2016-12-06] MEDS: RANOLAZINE 500 MG ER TAB PO SCH ×2 (08:37→20:18)
[2016-12-06] MEDS: ASCORBIC ACID 500 MG TAB PO SCH ×2 (08:37→20:18)
[2016-12-06] MEDS: FERROUS GLUCONATE 324 MG TAB PO SCH ×2 (08:37→20:18)
[2016-12-06] MEDS: FINASTERIDE 5 MG TAB PO SCH (08:37)
[2016-12-06] MEDS: DOCUSATE SODIUM 100 MG CAP PO SCH ×2 (08:37→20:18)
[2016-12-06] MEDS: PANTOPRAZOLE 40MG TAB (PROTONIX) PO SCH (08:37)
[2016-12-06] MEDS: FLUoxetine 20 MG CAP PO SCH (08:37)
[2016-12-06] MEDS: PREGABALIN 75 MG CAP(LYRICA) PO SCH (08:37)
[2016-12-06] MEDS: amLODIPine 5 MG TAB PO SCH (08:37)
--- NOTE | 2016-12-06 10:02 | IPNPDOC ---
[employer] Science Teacher Progress Note PROGRESS NOTE DATE OF ADMISSION: 12/01/16 DATE OF SERVICE: 12/06/16 IDENTIFICATION STATEMENT: Patient is a 76-year-old gentleman with acute right internal capsule infarct/left hemiparesis admitted for comprehensive integrated inpatient rehabilitation. PAST MEDICAL HISTORY: Hypertension Hyperlipidemia Coronary artery disease status post multiple stents Gastroesophageal reflux disease Esophagitis Gastritis Hiatal hernia Schatzki ring Colonic polyps Prior stroke affecting left side but without significant residual ?BPH PAST SURGICAL HISTORY: Coronary artery stents (2-3 times, patient unsure of which vessel stented or years of stenting) Appendectomy Right shoulder surgery Hernia repair ALLERGIES: aspirin leads to hives; NSAIDs MEDICATIONS: Altace 10 mg by mouth daily Norvasc 5 mg by mouth daily Plavix 75 mg daily Protonix 40mg daily Ferrous gluconate 324 mg daily Proscar 5 mg daily Atarax 25 mg by mouth daily as needed Nitrostat 0.4 mg sublingual every 5 minutes as needed Percocet 1 tab every 4 hours as needed Lyrica 150 mg daily Ranexa 500 mg twice a day Zocor 20 mg at bedtime Flomax 0.4 mg daily Spiriva 18 g inhaled daily Advair 1 puf bid Albuterol inhaler 2 puffs every 6 hours Pepcid 40 mg at night SUBJECTIVE: Patient w/o complaints. States intermittently able to move fingers. Slpt well. No issues over weekend. Denies any CP, increased SOB, N/V, C/D, lightheadedness, AGUILERA or new weakness. VITAL SIGNS: 98.0F, pulse 56, respiratory rate 18, blood pressure 156/72, 95% saturation on room air PHYSICAL EXAMINATION: GENERAL: Well nourished, well developed, sitting mat table, no acute distress. HEENT: Normocephalic, atraumatic. Left facial droop, slight (decreased). PERRL, EOMI CARDIOVASCULAR: S1, S2, regular rate. No lower limb edema or calf tenderness bilaterally LUNGS: Decreased breath sounds throughout, clear to auscultation, no wheezing rhonchi or rales. ABDOMEN: Soft, nontender, nondistended. Positive normoactive bowel sounds throughout. MUSCULOSKELETAL: Osteoarthritic changes bilateral hands and DIP and PIP joints. Manual muscle testin/5 strength right upper and lower limb in all major muscle groups. 4+/5 left hip flexors, 5/5 remainder of the left lower limb in all major muscle groups. 4/5 left shoulder shrug, 1/5 left index finger flexion , 0/5 left shoulder forward flexion, left shoulder abduction, elbow flexion, elbow extension, wrist extension/flexion, passenger train braker and finger extension. NEUROLOGICAL: Alert and oriented x 3. Answers all questions appropriately. Speech intact, no dysarthria. Able to follow commands without difficulty. SKIN: No skin breakdown. LABORATORY DATA: 12/06/16: re-reviewed, see below IMAGING: CT of the head without contrast 11/25/2016: Normal brain without evidence of any acute ischemic or hemorrhagic stroke. CTA of the head and neck on 11/25/2016: No attenuation in the right internal capsule/posterior [place] is consistent with infarct, probably recent. Hypoattenuation in the thalamus is likely primary care sales representative chronic infarct. 2 focal areas of narrowing is noted in the P1 segment of the right posterior cerebral artery. No evidence of hemodynamically significant flow stenosis. No evidence of aneurysm or AV malformation. No evidence of acute intracranial hemorrhage. MRI of the brain 11/25/2016: Acute infarct is noted in the right internal capsule, posterior [place]/bañuelos radiata. 2-D echocardiogram November 2016: Negative saline bubble study. Estimated left ventricular ejection fraction greater than 70%. Grossly normal right ventricular size and systolic function. There is mild aortic stenosis. Mild to moderate mitral regurgitation. FUNCTIONAL STATUS, Premorbid: Independent with ADLs and ambulation. ASSESSMENT AND PLAN: 1. Right internal capsule, acute infarct posterior [place] and bañuelos radiata with resultant left hemiparesis, gait abnormality and dysfunctional ADLs: Maintain Plavix and statin. Blood pressure control to maintain systolic blood pressure less than 140. Continue Prozac. Patient making progress. Continue daily physical and occupational therapy. NMES the left upper limb. Rehabilitation nursing for bladder, bowel and medication management. 2. Constipation: Resolved. Continue Colace and senna scheduled along with milk of magnesia and MiraLAX on an as-needed basis. 3. COPD: Maintain Proventil , Spiriva and Advair. 4. Anxiety: Continue Atarax when necessary 5. Gastritis/reflux: Continue PPI along with H2 navya. 6. Pain: Percocet on an as-needed basis. Continue Lyrica daily. Flexeril prn for spasms. 7. Diet/nutrition: Prealbumin wnl. Low cholesterol diet. / Vital Signs Vital Sign - Last 24 Hours 12/05/16 12/05/16 12/05/16 12/06/16 14:00 20:00 21:00 06:00 Temp 97.6 97.0 98.0 Pulse 52 54 56 Resp 18 17 18 B/P 114/58 154/72 156/72 Pulse Ox 95 94 95 O2 Delivery Room Air Room Air Room Air Room Air 12/06/16 12/06/16 12/06/16 12/06/16 06:43 07:19 07:53 08:36 Resp 16 18 B/P 156/72 O2 Delivery Room Air Room Air 12/06/16 08:37 Pulse 56 B/P 156/72 Laboratory Data CBC/BMP Laboratory Tests 12/06/16 06:57 Calcium Level 8.7 L, Red Blood Count 4.44, Mean Corpuscular Volume 83.2, Mean Corpuscular Hemoglobin 26.7 L, Mean Corpuscular Hemoglobin Concent 32.1, Red Cell Distribution Width 13.6 Labs 24H Laboratory Tests 2 12/06/16 06:57: Anion Gap 9, Blood Urea Nitrogen 13, Creatinine 0.87, Sodium Level 141, Potassium Level 3.9, Chloride Level 103, Carbon Dioxide Level 29, Calcium Level 8.7L, Glomerular Filtration Rate > 60.0 Allergies Allergies: Coded Allergies: Aspirin (Verified Allergy, Unknown, 01/09/13) NSAIDs (Verified Allergy, Unknown, 01/09/13) Current Medications Current Medications Current Medications Acetaminophen (Tylenol Tab) 650 mg Q4HP PRN PO MILD PAIN (PS 1-4); Start at 10:00; Stop 12/31/16 at 09:59 Albuterol Sulfate (Proventil, Ventolin Hfa) 2 puff Q6HP PRN INH SHORTNESS OF BREATH; Start 12/01/16 at 10:00; Stop 12/31/16 at 09:59 Amlodipine Besylate (Norvasc) 5 mg DAILY PO Last administered on 12/06/16 08: 37; Start 12/01/16 at 09:00; Stop 12/31/16 at 08:59 Ascorbic Acid (Vitamin C) 500 mg BID PO Last administered on 12/06/16 08:37; Start 12/03/16 at 09:00; Stop 01/02/17 at 08:59 Clopidogrel Bisulfate (PLAVix) 75 mg DAILY PO Last administered on 12/06/16 08 :36; Start 12/02/16 at 09:00; Stop 01/01/17 at 08:59 Cyclobenzaprine HCl (Flexeril) 10 mg Q8HP PRN PO SPASMS Last administered on 20:44; Start 12/02/16 at 09:45; Stop 01/01/17 at 09:44 Docusate Sodium (Colace) 100 mg BID PO Last administered on 12/05/16 07:28; Start 12/01/16 at 21:00; Stop 12/31/16 at 20:59 Famotidine (Pepcid) 40 mg QHS PO Last administered on 12/05/16 21:32; Start at 21:00; Stop 12/31/16 at 20:59 Ferrous Gluconate (Fergon) 324 mg BID PO Last administered on 12/06/16 08:37; Start 12/03/16 at 21:00; Stop 01/02/17 at 20:59 Ferrous Gluconate (Fergon) 324 mg DAILY PO Last administered on 12/03/16 08:17 ; Start 12/01/16 at 09:00; Stop 12/03/16 at 09:39; Status DC Finasteride (Proscar) 5 mg DAILY PO Last administered on 12/06/16 08:37; Start 12/02/16 at 09:00; Stop 01/01/17 at 08:59 Fluoxetine HCl (PROzac) 20 mg DAILY PO Last administered on 12/06/16 08:37; Start 12/01/16 at 09:00; Stop 12/31/16 at 08:59 Home Med (Med Rec Complete!) ASDIRECTED XX ; Start 12/01/16 at 11:45; Stop at 11:57; Status DC Hydroxyzine HCl (Atarax) 25 mg DAILYPRN PRN PO ANXIETY or INSOMNIA Last administered on 12/04/16 20:43; Start 12/01/16 at 10:00; Stop 01/02/17 at 09:59 Magnesium Hydroxide (Milk Of Magnesia) 30 ml DAILYPRN PRN PO CONSTIPATION Last administered on 12/01/16 13:08; Start 12/01/16 at 10:00; Stop 12/31/16 at 09:59 Nitroglycerin (Nitrostat (1/ 150)) 0.4 mg Q5MP PRN SL CHEST PAIN; Start at 10:00; Stop 12/31/16 at 09:59 Oxycodone/ Acetaminophen (Percocet 5mg/ 325mg Tablet) 1 tab Q4HP PRN PO MODERATE/SEVERE PAIN (PS 5-10) Last administered on 12/06/16 06:43; Start 12/01 at 10:00; Stop 12/08/16 at 09:59 Pantoprazole Sodium (Protonix) 40 mg DAILY PO Last administered on 12/06/16 08 :37; Start 12/01/16 at 09:00; Stop 12/31/16 at 08:59 Polyethylene Glycol (Miralax) 1 pkt DAILY PRN PO CONSTIPATION; Start 12/01/16 at 10:00; Stop 12/31/16 at 09:59 Pregabalin (Lyrica) 150 mg DAILY PO Last administered on 12/06/16 08:37; Start 12/02/16 at 09:00; Stop 12/09/16 at 08:59 Ramipril (Altace) 10 mg DAILY PO Last administered on 12/06/16 08:36; Start at 09:00; Stop 01/01/17 at 08:59 Ranolazine (Ranexa) 500 mg BID PO Last administered on 12/06/16 08:37; Start 12/01/16 at 21:00; Stop 12/31/16 at 20:59 Salmeterol Xinafoate/ Fluticasone (Advair Diskus 250/50) 1 puff BID INH Last administered on 12/06/16 07:52; Start 12/01/16 at 09:00; Stop 12/31/16 at 08:59 Senna (Senokot) 1 tab QHS PO Last administered on 12/04/16 20:44; Start at 21:00; Stop 12/31/16 at 20:59 Simvastatin (Zocor) 20 mg QHS PO Last administered on 12/05/16 21:32; Start at 21:00; Stop 12/31/16 at 20:59 Tamsulosin HCl (Flomax) 0.4 mg DAILY PO Last administered on 12/06/16 08:36; Start 12/02/16 at 09:00; Stop 01/01/17 at 08:59 Tiotropium [place] (Spiriva Handihaler) 1 inhalation DAILY@08 INH Last administered on 12/06/16 07:52; Start 12/01/16 at 08:00; Stop 12/31/16 at 07:59 ERROL ACEVEDO MD Dec 06, 2016 10:02 ERROL ACEVEDO MD Dec 06, 2016 10:02
[2016-12-06] MEDS ORDERED: AMLO5TAB2 PO (13:58)
[2016-12-06] MEDS ORDERED: FLUO20CA8 PO (13:58)
[2016-12-06] MEDS ORDERED: CLOP75TA2 PO (13:58)
[2016-12-06] MEDS ORDERED: FERR32TA PO (13:58)
[2016-12-06] MEDS ORDERED: VITA-130 PO (13:58)
[2016-12-06] MEDS ORDERED: SYMB80INH INH (13:58)
[2016-12-06] MEDS ORDERED: SPIR1CAP INH (13:58)
[2016-12-06] MEDS ORDERED: PROA1AER INH (13:58)
[2016-12-06] MEDS ORDERED: LYRI150C PO (13:58)
[2016-12-06] MEDS ORDERED: RAMI10CA PO (13:58)
[2016-12-06] MEDS ORDERED: CYCL10TA PO (13:58)
[2016-12-06] MEDS ORDERED: FINA5TAB2 PO (13:58)
[2016-12-06] MEDS ORDERED: FLOM5CAP PO (13:58)
[2016-12-06] MEDS ORDERED: RANI300T PO (13:58)
[2016-12-06] MEDS ORDERED: DEXI60CA PO (13:58)
[2016-12-06] MEDS ORDERED: RANO5TAB PO (13:58)
[2016-12-06 14:00] VITALS: BP 122/64
[2016-12-06] MEDS ORDERED: OXYC1TAB23 PO (14:01)
[2016-12-06 20:00] VITALS: BP 143/67
[2016-12-06] MEDS: SENNA 8.6 MG TAB (SENOKOT) PO SCH (20:17)
[2016-12-06] MEDS: FAMOTIDINE 20 MG TAB PO SCH (20:18)
[2016-12-06] MEDS: SIMVASTATIN 20 MG TAB PO SCH (20:18)
[2016-12-06] MEDS: CYCLOBENZAPRINE 10 MG TAB PO PRN (20:18)
[2016-12-07 06:00] VITALS: BP 142/69
[2016-12-07] MEDS: ADVAIR DISKUS 250/50 INH PWD INH SCH (07:58)
[2016-12-07] MEDS: TIOTROPIUM INHALER/CAPSULE (SPIRIVA) INH SCH (07:59)
[2016-12-07] MEDS: DOCUSATE SODIUM 100 MG CAP PO SCH (08:18)
[2016-12-07] MEDS: PREGABALIN 75 MG CAP(LYRICA) PO SCH (08:19)
[2016-12-07] MEDS: ASCORBIC ACID 500 MG TAB PO SCH (08:19)
[2016-12-07] MEDS: PANTOPRAZOLE 40MG TAB (PROTONIX) PO SCH (08:19)
[2016-12-07] MEDS: RAMIPRIL 5 MG CAP PO SCH (08:20)
[2016-12-07] MEDS: FINASTERIDE 5 MG TAB PO SCH (08:20)
[2016-12-07] MEDS: FLUoxetine 20 MG CAP PO SCH (08:20)
[2016-12-07] MEDS: FERROUS GLUCONATE 324 MG TAB PO SCH (08:20)
[2016-12-07 08:21] VITALS: BP 136/63
[2016-12-07] MEDS: amLODIPine 5 MG TAB PO SCH (08:21)
[2016-12-07] MEDS: TAMSULOSIN 0.4 MG CAP PO SCH (08:21)
[2016-12-07] MEDS: CLOPIDOGREL 75 MG TAB PO SCH (08:21)
[2016-12-07] MEDS: PERCOCET 5MG/325MG TAB PO PRN (08:22)
[2016-12-07] MEDS: RANOLAZINE 500 MG ER TAB PO SCH (08:31)
--- NOTE | 2016-12-07 13:05 | DS.PDOC ---
[employer] Discharge Note DISCHARGE SUMMARY DATE OF ADMISSION: 12/01/16 DATE OF DISCHARGE: 12/07/16 DISCHARGE DIAGNOSIS 1. 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 Constipation 3. COPD 4. Anxiety 5. Gastritis/reflux IDENTIFICATION STATEMENT: Patient is a 76-year-old gentleman with acute right internal capsule infarct/left hemiparesis admitted for comprehensive integrated inpatient rehabilitation. PAST MEDICAL HISTORY: Hypertension Hyperlipidemia Coronary artery disease status post multiple stents Gastroesophageal reflux disease Esophagitis Gastritis Hiatal hernia Schatzki ring Colonic polyps Prior stroke affecting left side but without significant residual ?BPH PAST SURGICAL HISTORY: Coronary artery stents (2-3 times, patient unsure of which vessel stented or years of stenting) Appendectomy Right shoulder surgery Hernia repair HOSPITAL COURSE The patient underwent daily physical and occupational therapy. He tolerated his therapy sessions well and made progressive gains. He regained the majority of his strength of left lower limb. He underwent NMES left upper limb and began to get motor return, proximally > distally. On 12/07/16 he was deemed stable discharge home. Other issues addressed while on the rehabilitation unit are outlined as follows: 1. Right internal capsule, acute infarct posterior Barksdale and bañuelos radiata: Maintained on Plavix and statin. Maintained systolic blood pressure less than 140. Continued on Prozac to support motor recovery per FLAME study. 2. Constipation: Resolved with bowel program of Colace and senna scheduled along with milk of magnesia and MiraLAX on an as-needed basis. 3. COPD: Maintained on Proventil , Spiriva and Advair. 4. Anxiety: Provided with Atarax on as needed basis, last dose requested . 5. Gastritis/reflux: Continue PPI along with H2 navya. 6. Pain: Percocet on an as-needed basis. Continued Lyrica daily. Started on Flexeril prn for leg spasms. 7. Iron deficiency: Iron studies done which revealed persistent deficiency so iron supplementatyion increased to twice daily. VITAL SIGNS: 96.7F, pulse 60, respiratory rate 18, blood pressure 136/63, 96% saturation on room air PHYSICAL EXAMINATION: GENERAL: Well nourished, well developed, sitting in WC, no acute distress. HEENT: Normocephalic, atraumatic. Left facial droop, slight (decreased since admission). PERRL, EOMI CARDIOVASCULAR: S1, S2, regular rate. No lower limb edema or calf tenderness bilaterally LUNGS: Decreased breath sounds throughout, clear to auscultation, no wheezing rhonchi or rales. ABDOMEN: Soft, nontender, nondistended. Normoactive bowel sounds throughout. MUSCULOSKELETAL: Osteoarthritic changes bilateral hands and DIP and PIP joints. Manual muscle testin/5 strength right upper and lower limb in all major muscle groups. 4+/5 left hip flexors, 5/5 remainder of the left lower limb in all major muscle groups. 4+/5 left shoulder shrug, 3-/5 left shoulder extension , 2/5 left finger flexion, 1/5 left shoulder forward flexion, 0/5 left shoulder abduction, elbow flexion, elbow extension, wrist extension/flexion and finger extension. NEUROLOGICAL: Alert and oriented x 3. Answers all questions appropriately. Speech intact, no dysarthria. Able to follow commands without difficulty. SKIN: No skin breakdown. LABORATORY DATA: 12/06/16: re-reviewed, see below IMAGING: CT of the head without contrast 11/25/2016: Normal brain without evidence of any acute ischemic or hemorrhagic stroke. CTA of the head and neck on 11/25/2016: No attenuation in the right internal capsule/posterior Francisco is consistent with infarct, probably recent. Hypoattenuation in the thalamus is likely traffic representative chronic infarct. 2 focal areas of narrowing is noted in the P1 segment of the right posterior cerebral artery. No evidence of hemodynamically significant flow stenosis. No evidence of aneurysm or AV malformation. No evidence of acute intracranial hemorrhage. MRI of the brain 11/25/2016: Acute infarct is noted in the right internal capsule, posterior Barksdale/bañuelos radiata. 2-D echocardiogram November 2016: Negative saline bubble study. Estimated left ventricular ejection fraction greater than 70%. Grossly normal right ventricular size and systolic function. There is mild aortic stenosis. Mild to moderate mitral regurgitation. FUNCTIONAL STATUS, Premorbid: Independent with ADLs and ambulation. ALLERGIES: aspirin leads to hives; NSAIDs MEDICATIONS: Altace 10 mg by mouth daily Norvasc 5 mg by mouth daily Plavix 75 mg daily Lipitor 80mg qhs Prozac 20mg daily Dexilant 60mg daily Rantidine 300mg qhs Ferrous gluconate 324 mg bid Vitamin C 500mg bid Proscar 5 mg daily Flomax 0.4 mg daily Nitrostat 0.4 mg sublingual every 5 minutes as needed Percocet 1 tab every 4 hours as needed Lyrica 150 mg daily Flexeril 10mg po q8h prn spasms Ranexa 500 mg twice a day Zocor 20 mg at bedtime Spiriva 18 g inhaled daily Symbicort 2inh bid Albuterol inhaler 2 puffs every 6 hours Melatonin 3mg po qhs DISCHARGE DISPOSITION: 1. The patient discharge home with family 2. The patient discharged in stable condition 3. Discharged with prescriptions for continued outpatient PT & OT . 4. Post discharge follow-up medical appointments: PCP, Stroke Clinic. / Vital Signs/I&O Vital Sign - Last 24 Hours 12/06/16 12/06/16 12/06/16 12/06/16 14:00 20:00 20:00 20:18 Temp 97.7 96.3 Pulse 56 54 Resp 18 18 18 B/P 122/64 143/67 Pulse Ox 94 96 O2 Delivery Room Air Room Air Room Air 12/07/16 12/07/16 12/07/16 12/07/16 06:00 08:00 08:20 08:21 Temp 96.7 Pulse 49 60 Resp 18 B/P 142/69 136/63 136/63 Pulse Ox 96 O2 Delivery Room Air Room Air 12/07/16 12/07/16 08:22 08:52 Resp 18 18 I&O- Last 24 Hours up to 6 AM 12/07/16 06:00 Intake Total 1320 ml Balance 1320 ml Laboratory Data CBC/BMP Laboratory Tests 12/06/16 06:57 Calcium Level 8.7 L, Red Blood Count 4.44, Mean Corpuscular Volume 83.2, Mean Corpuscular Hemoglobin 26.7 L, Mean Corpuscular Hemoglobin Concent 32.1, Red Cell Distribution Width 13.6 Labs 48H Laboratory Tests 12/06/16 06:57: Anion Gap 9, Blood Urea Nitrogen 13, Creatinine 0.87, Sodium Level 141, Potassium Level 3.9, Chloride Level 103, Carbon Dioxide Level 29, Calcium Level 8.7L, Fasting Glucose 106, Glomerular Filtration Rate > 60.0, White Blood Count 5.1, Red Blood Count 4.44, Hemoglobin 11.9L, Hematocrit 37.0L, Mean Corpuscular Volume 83.2, Mean Corpuscular Hemoglobin 26.7L, Mean Corpuscular Hemoglobin Concent 32.1, Red Cell Distribution Width 13.6, Platelet Count 144L Medications Medications Current Medications Acetaminophen (Tylenol Tab) 650 mg Q4HP PRN PO MILD PAIN (PS 1-4); Start at 10:00; Stop 12/07/16 at 11:34; Status DC Albuterol Sulfate (Proventil, Ventolin Hfa) 2 puff Q6HP PRN INH SHORTNESS OF BREATH; Start 12/01/16 at 10:00; Stop 12/07/16 at 11:34; Status DC Amlodipine Besylate (Norvasc) 5 mg DAILY PO Last administered on 12/07/16 08: 21; Start 12/01/16 at 09:00; Stop 12/07/16 at 11:34; Status DC Ascorbic Acid (Vitamin C) 500 mg BID PO Last administered on 12/07/16 08:19; Start 12/03/16 at 09:00; Stop 12/07/16 at 11:34; Status DC Clopidogrel Bisulfate (PLAVix) 75 mg DAILY PO Last administered on 12/07/16 08 :21; Start 12/02/16 at 09:00; Stop 12/07/16 at 11:34; Status DC Cyclobenzaprine HCl (Flexeril) 10 mg Q8HP PRN PO SPASMS Last administered on 20:18; Start 12/02/16 at 09:45; Stop 12/07/16 at 11:34; Status DC Docusate Sodium (Colace) 100 mg BID PO Last administered on 12/07/16 08:18; Start 12/01/16 at 21:00; Stop 12/07/16 at 11:34; Status DC Famotidine (Pepcid) 40 mg QHS PO Last administered on 12/06/16 20:18; Start at 21:00; Stop 12/07/16 at 11:34; Status DC Ferrous Gluconate (Fergon) 324 mg BID PO Last administered on 12/07/16 08:20; Start 12/03/16 at 21:00; Stop 12/07/16 at 11:34; Status DC Ferrous Gluconate (Fergon) 324 mg DAILY PO Last administered on 12/03/16 08:17 ; Start 12/01/16 at 09:00; Stop 12/03/16 at 09:39; Status DC Finasteride (Proscar) 5 mg DAILY PO Last administered on 12/07/16 08:20; Start 12/02/16 at 09:00; Stop 12/07/16 at 11:34; Status DC Fluoxetine HCl (PROzac) 20 mg DAILY PO Last administered on 12/07/16 08:20; Start 12/01/16 at 09:00; Stop 12/07/16 at 11:34; Status DC Home Med (Med Rec Complete!) ASDIRECTED XX ; Start 12/01/16 at 11:45; Stop at 11:57; Status DC Hydroxyzine HCl (Atarax) 25 mg DAILYPRN PRN PO ANXIETY or INSOMNIA Last administered on 12/04/16 20:43; Start 12/01/16 at 10:00; Stop 12/07/16 at 11:34 ; Status DC Magnesium Hydroxide (Milk Of Magnesia) 30 ml DAILYPRN PRN PO CONSTIPATION Last administered on 12/01/16 13:08; Start 12/01/16 at 10:00; Stop 12/07/16 at 11:34 ; Status DC Nitroglycerin (Nitrostat (1/ 150)) 0.4 mg Q5MP PRN SL CHEST PAIN; Start at 10:00; Stop 12/07/16 at 11:34; Status DC Oxycodone/ Acetaminophen (Percocet 5mg/ 325mg Tablet) 1 tab Q4HP PRN PO MODERATE/SEVERE PAIN (PS 5-10) Last administered on 12/07/16 08:22; Start 12/01 at 10:00; Stop 12/07/16 at 11:34; Status DC Pantoprazole Sodium (Protonix) 40 mg DAILY PO Last administered on 12/07/16 08 :19; Start 12/01/16 at 09:00; Stop 12/07/16 at 11:34; Status DC Polyethylene Glycol (Miralax) 1 pkt DAILY PRN PO CONSTIPATION; Start 12/01/16 at 10:00; Stop 12/07/16 at 11:34; Status DC Pregabalin (Lyrica) 150 mg DAILY PO Last administered on 12/07/16 08:19; Start 12/02/16 at 09:00; Stop 12/07/16 at 11:34; Status DC Ramipril (Altace) 10 mg DAILY PO Last administered on 12/07/16 08:20; Start at 09:00; Stop 12/07/16 at 11:34; Status DC Ranolazine (Ranexa) 500 mg BID PO Last administered on 12/07/16 08:31; Start 12/01/16 at 21:00; Stop 12/07/16 at 11:34; Status DC Salmeterol Xinafoate/ Fluticasone (Advair Diskus 250/50) 1 puff BID INH Last administered on 12/07/16 07:58; Start 12/01/16 at 09:00; Stop 12/07/16 at 11:34 ; Status DC Senna (Senokot) 1 tab QHS PO Last administered on 12/06/16 20:17; Start at 21:00; Stop 12/07/16 at 11:34; Status DC Simvastatin (Zocor) 20 mg QHS PO Last administered on 12/06/16 20:18; Start at 21:00; Stop 12/07/16 at 11:34; Status DC Tamsulosin HCl (Flomax) 0.4 mg DAILY PO Last administered on 12/07/16 08:21; Start 12/02/16 at 09:00; Stop 12/07/16 at 11:34; Status DC Tiotropium [place] (Spiriva Handihaler) 1 inhalation DAILY@08 INH Last administered on 12/07/16 07:59; Start 12/01/16 at 08:00; Stop 12/07/16 at 11:34 ; Status DC Scheduled (Dexilant) 60 Mg Cap 60 MG PO DAILY Amlodipine Besylate (Amlodipine Besylate) 5 Mg Tab 5 MG PO DAILY Ascorbic Acid (Vitamin C) 500 Mg Tab 500 MG PO BID Budesonide/Formoterol (Symbicort 80-4.5 Mcg/Act) 60 Puff/Inhaler Aers 2 PUFF INH BID Clopidogrel Bisulfate (Clopidogrel) 75 Mg Tab 75 MG PO DAILY Ferrous Gluconate (Ferrous Gluconate) 324 Mg Tab 324 MG PO BID Finasteride (Finasteride) 5 Mg Tab 5 MG PO DAILY Fluoxetine Hcl (Fluoxetine) 20 Mg Cap 20 MG PO DAILY SEE COMMENTS Pregabalin (Lyrica) 150 Mg Cap 150 MG PO DAILY Ramipril (Ramipril) 10 Mg Cap 10 MG PO DAILY Ranitidine HCl (Ranitidine HCl) 300 Mg Tab 1 TAB PO QHS Ranolazine (Ranexa) 500 Mg Ryan 500 MG PO BID Tamsulosin Hydrochloride (Flomax) 0.4 Mg Cap 1 CAP PO DAILY once daily 1/2 hour following the same meal each day Tiotropium [place] Monohydrate (Spiriva Handihaler) 18 Mcg Cap 1 INHALATION INH DAILY Scheduled PRN Acetaminophen (Acetaminophen) 325 Mg Tab 650 MG PO Q6H PRN PRN PAIN (Reported) Albuterol Sulfate (Proair Hfa) 108 Mcg/Act Aer 2 PUFF INH QID PRN PRN SHORTNESS OF BREATH Cyclobenzaprine HCl (Cyclobenzaprine HCl) 10 Mg Tab 10 MG PO Q8HP PRN PRN SPASMS Docusate Sodium (Colace) 100 Mg Cap 100 MG PO BID PRN PRN CONSTIPATION (Reported ) Melatonin (Melatonin) 3 Mg Tab 3 MG PO QHS PRN PRN SLEEP (Reported) Nitroglycerin (Nitrostat) 0.4 Mg Subl 0.4 MG SL Q5MP PRN PRN CHEST PAIN ( Reported) Oxycodone/Acetaminophen (Oxycodone/Acetaminophen 5-325 mg) 1 Tab Tab 1 TAB PO Q4H PRN PRN SEVERE PAIN (PS 8-10) Polyethylene Glycol (Miralax) 1 Pow Pow 17 GM PO DAILY PRN PRN CONSTIPATION ( Reported) dilute in 8 ounces of water or juice Allergies Coded Allergies: Aspirin (Verified Allergy, Unknown, 01/09/13) NSAIDs (Verified Allergy, Unknown, 01/09/13) ERROL ACEVEDO MD Dec 07, 2016 13:05
== END 2016-12-07 11:20 | disposition home health service (06) | DRG 57 ==
LOC: M PM&R 10:43
PROVIDERS: ADMIT Physical Medicine & Rehabilitation; ATTEND Physical Medicine & Rehabilitation
DX: I69.354 Hemiplegia and hemiparesis following cerebral infarction affecting left non-dominant side (principal); I10 Essential (primary) hypertension; E78.5 Hyperlipidemia, unspecified; I25.10 Atherosclerotic heart disease of native coronary artery without angina pectoris; K21.0 Gastro-esophageal reflux disease with esophagitis; K29.70 Gastritis, unspecified, without bleeding; K44.9 Diaphragmatic hernia without obstruction or gangrene; K22.2 Esophageal obstruction; K59.00 Constipation, unspecified; M54.5 Low back pain; J44.9 Chronic obstructive pulmonary disease, unspecified; F17.210 Nicotine dependence, cigarettes, uncomplicated; N40.0 Benign prostatic hyperplasia without lower urinary tract symptoms; E61.1 Iron deficiency; G47.62 Sleep related leg cramps; F41.9 Anxiety disorder, unspecified; M19.041 Primary osteoarthritis, right hand; M19.042 Primary osteoarthritis, left hand; Z79.02 Long term (current) use of antithrombotics/antiplatelets; Z79.891 Long term (current) use of opiate analgesic; Z79.899 Other long term (current) drug therapy; Z79.51 Long term (current) use of inhaled steroids; Z86.010 Personal history of colon polyps; Z88.6 Allergy status to analgesic agent; Z95.5 Presence of coronary angioplasty implant and graft

== ENCOUNTER → 2019-07-31 | Outpatient (REF) ==
[~2019-07-31] MED LIST: ACET1TAB55 PO; ALPR0.25 PO; AMLO5TAB6 PO; ATOR80TA59 PO; CLOP75TA2 PO; COLA100C5 PO; CYCL10TA PO; DEXI60CA2 PO; DULO1CAP6 PO; FERR1TAB8 PO; FERR32TA PO; FINA5TAB2 PO; FLOM0.4C39 PO; FLUO20CA8 PO; HYDR-3363 PO; LYRI150C PO; MELA3TAB63 PO; MIRA3350 PO; NITR4TASL SL; OXYC1TAB23 PO; PROAAER10 INH; RAMI1CAP26 PO; RANI300T PO; RANO500T7 PO; SPIR1CAP INH; SYMB80INH INH; VITA500T PO
== END ==
LOC: M LAB LCGH 08:36
PROVIDERS: ATTEND Physician Assistant
DX: D48.5 Neoplasm of uncertain behavior of skin (principal)

== ENCOUNTER → 2019-09-20 | Outpatient (REF) | payer MEDICARE, MEDICAID ==
[~2019-09-20] MED LIST changes: +FLUO20CA20 PO; -FLUO20CA8 PO
== END ==
LOC: M LAB LCGH 15:20
PROVIDERS: ATTEND Physician Assistant
DX: C44.529 Squamous cell carcinoma of skin of other part of trunk (principal)

== ENCOUNTER → 2020-06-09 | Outpatient (REF) | payer MEDICARE, MEDICAID ==
[~2020-06-09] MED LIST changes: +AMLO1TAB24 PO; -AMLO5TAB6 PO; +CYCL-707 PO; -CYCL10TA PO; +VITA-243 PO; -VITA500T PO
== END ==
LOC: M LAB REF 14:00
PROVIDERS: ATTEND Physician Assistant
DX: D23.71 Other benign neoplasm of skin of right lower limb, including hip (principal)
CPT/HCPCS: 11102; 17000; 88305; G0463

== ENCOUNTER → 2021-10-23 | Outpatient (REF) | payer MEDICARE, MEDICAID ==
[~2021-10-23] MED LIST changes: +FLUO-96 PO; -FLUO20CA20 PO; -MELA3TAB63 PO; +MELA3TAB70 PO
== END ==
LOC: M LAB REF 17:26
PROVIDERS: ATTEND Dermatology
DX: L72.0 Epidermal cyst (principal)

== ENCOUNTER 2022-10-12 06:47 | Day surgery (SDC) | payer MEDICARE ==
[~2022-10-12] VITALS: Ht 152.4 cm; Wt 70.3 kg
[~2022-10-12 06:47] MED LIST changes: +CYCLOPENTOLATE 1% OPHTH SOLN 2ML BTL OS SCH; +OFLOXACIN 0.3 % (OCUFLOX) OPTH SOL 5ML OS SCH; +PHENYLEPHRINE 2.5% OPHTH SOL 2ML OS SCH; +PROPARACAINE 0.5% OPHTH SOL 15ML OS ONE; +TROPICAMIDE 1% OPHTH SOLN 15ML OS SCH
[2022-10-12] MEDS ORDERED: BSS IRR 500ML/OMIDRIA 4ML IRR BAG (OR ONLY) As Ordered ONE (06:58)
[2022-10-12] MEDS ORDERED: LIDOCAINE 1% 1ML PF SYRINGE (OR EYE CASES) As Ordered ONE (06:58)
[2022-10-12] MEDS ORDERED: CEFUROXIME 1MG/0.1ML INTRACAMERAL INJ As Ordered ONE (06:58)
[2022-10-12] MEDS: CYCLOPENTOLATE 1% OPHTH SOLN 2ML BTL OS SCH ×2 (07:44→07:45)
[2022-10-12] MEDS ORDERED: EPINEPHrine INJ 1 MG/ML 1ML AMP As Ordered ONE (08:11)
[2022-10-12 08:51] VITALS: BP 175/77
== END 2022-10-12 09:09 | disposition home or self-care (01) ==
LOC: M SDC 06:47
PROVIDERS: ATTEND Ophthalmology
DX: H25.12 Age-related nuclear cataract, left eye (principal); I10 Essential (primary) hypertension; E78.00 Pure hypercholesterolemia, unspecified; K21.9 Gastro-esophageal reflux disease without esophagitis; Z95.5 Presence of coronary angioplasty implant and graft; M54.9 Dorsalgia, unspecified; J44.9 Chronic obstructive pulmonary disease, unspecified; G47.30 Sleep apnea, unspecified; N40.0 Benign prostatic hyperplasia without lower urinary tract symptoms; I69.354 Hemiplegia and hemiparesis following cerebral infarction affecting left non-dominant side; Z88.6 Allergy status to analgesic agent; Z88.8 Allergy status to other drugs, medicaments and biological substances; Z79.899 Other long term (current) drug therapy; Z79.02 Long term (current) use of antithrombotics/antiplatelets; Z79.891 Long term (current) use of opiate analgesic
CPT/HCPCS: 66984; J0697; V2632